=== PATIENT | male | born 1965 | race Caucasian/White ===

== ENCOUNTER 2016-07-25 21:36 | Emergency (ER) | payer OTHER ==
[~2016-07-25] VITALS: Ht 182.9 cm; Wt 86.2 kg
[2016-07-25 22:29] LABS: CALCIUM 7.3 mg/dL (8.5-10.1); CARBON DIOXIDE 26.1 mmol/L (21-32); CHLORIDE SERUM 108 mmol/L (98-107); CREATININE SERUM 0.9 mg/dL (0.7-1.3); GFR1 > 60 mL/min; GLUCOSE SERUM 101 mg/dL (74-106); POTASSIUM SERUM 3.3 mmol/L (3.5-5.1); SODIUM SERUM 142 mmol/L (136-145)
[2016-07-25 22:36] LABS: BASOPHIL % 0.4 % (0-2); PLATELET COUNT 205 x10^3mcL (130-400); RED CELL DISTRIBUTION WIDTH 13.4 % (11.5-14.5)
[2016-07-25 22:39] LABS: ALBUMIN 3.3 g/dL (3.4-5.0); ALKALINE PHOSPHATASE 54 U/L (46-116); ALT/SGPT 61 U/L (16-63); AST/SGOT 48 U/L (15-37); BILIRUBIN TOTAL 0.36 mg/dL (0.20-1.00); TOTAL PROTEIN, SERUM 6.4 g/dL (6.4-8.2)
[2016-07-26 02:39] VITALS: BP 139/76
== END 2016-07-26 02:39 | disposition home or self-care (01) ==
LOC: ED 21:36
PROVIDERS: Emergency Medicine
DX: T40.1X1A Poisoning by heroin, accidental (unintentional), initial encounter (principal); R53.83 Other fatigue; Y92.89 Other specified places as the place of occurrence of the external cause
CPT/HCPCS: G0480

== ENCOUNTER 2017-06-02 09:13 | Emergency (ER) | payer OTHER ==
[~2017-06-02] VITALS: Ht 182.9 cm; Wt 81.6 kg
[2017-06-02 09:18] VITALS: Ht 182.9 cm; Wt 81.6 kg
[2017-06-02 11:06] VITALS: BP 120/64
== END 2017-06-02 11:06 | disposition home or self-care (01) ==
LOC: ED 09:13
DX: M54.5 Low back pain (principal); L20.9 Atopic dermatitis, unspecified
CPT/HCPCS: J1885

== ENCOUNTER 2018-10-17 12:20 | Emergency (ER) | payer OTHER ==
[~2018-10-17] VITALS: Ht 182.9 cm; Wt 81.6 kg
[2018-10-17 12:57] VITALS: Ht 182.9 cm; Wt 81.6 kg
[2018-10-17 17:31] VITALS: BP 110/74
== END 2018-10-17 17:31 | disposition home or self-care (01) ==
LOC: ED 12:20
DX: S20.219A Contusion of unspecified front wall of thorax, initial encounter (principal); S09.8XXA Other specified injuries of head, initial encounter; V49.69XA Unspecified car occupant injured in collision with other motor vehicles in traffic accident, initial encounter; Y93.I9 Activity, other involving external motion; Y92.413 State road as the place of occurrence of the external cause; Y99.8 Other external cause status
CPT/HCPCS: J3010

== ENCOUNTER 2020-04-18 02:09 | Emergency (ER) | payer OTHER | END 2020-04-18 04:53 | LOC: ED 02:09 | DX: Z02.89 Encounter for other administrative examinations (principal) ==

== ENCOUNTER 2020-04-18 02:09 | Emergency (ER) | payer SELFPAY ==
[~2020-04-18] VITALS: Ht 182.9 cm; Wt 86.2 kg
[2020-04-18 02:19] VITALS: Ht 182.9 cm; Wt 86.2 kg
[2020-04-18 02:52] VITALS: BP 136/95
== END 2020-04-18 02:52 ==
LOC: ED 02:09
DX: S60.811A Abrasion of right wrist, initial encounter (principal); W45.8XXA Other foreign body or object entering through skin, initial encounter; Y93.89 Activity, other specified; Y92.89 Other specified places as the place of occurrence of the external cause; Y99.8 Other external cause status
CPT/HCPCS: 90715